=== PATIENT | female | born 1960 | race Caucasian/White ===

== ENCOUNTER 2019-09-17 12:53 | Observation (INO) | payer OTHER, SELFPAY ==
--- NOTE | 2019-09-17 17:03 | CT ---
CT ABDOMEN AND PELVIS WITHOUT CONTRAST: History: 59-year-old female with ureteral stone, left sided abdominal pain. FINDINGS: The 6-7 mm calculus in the left ureter has moved inferiorly to the L3 level on the 09-11-2019 exam to the L4-5 level on the current exam. There is continued left sided hydroureteronephrosis with periuret eral inflammatory changes. 6 mm calculus in the left kidney is again seen. No calculi are seen in the right kidney, right ureter, or urinary bladder. No right sided hydroureter onephrosis is seen. The remainder of the exam is stable. IMPRESSION: Left sided obstructive uropathy due to a 6-7 mm calculus at L4-5 level. This has moved inferiorly sin ce 09-11-2019. POS: OFF
[2019-09-17] MEDS ORDERED: Ketorolac Tromethamine 30 MG/ML VIAL ONE (17:11)
[2019-09-17 18:10] LABS: Bilirubin Negative (Negative); Blood, Urine Moderate (Negative); Glucose, Urine (Dipstick) 100 mg/dL (Negative); Ketone, Urine 40 mg/dL (Negative); Leukocyte Negative (Negative); Nitrite Negative (Negative); Protein, Urine (Dipstick) 30 mg/dL (Neg-Trace)
[2019-09-17 18:11] LABS: #Basophils 0.1 thou/uL (0.0-0.2); #Lymphocytes 1.5 thou/uL (1.20-3.40); #Monocytes 0.9 thou/uL (0.11-0.59); #Neutrophils 10.1 thou/uL (1.40-6.50); %Basophils 0.9 % (0.0-1.0); %Eosinophils 0.4 % (0.0-10.0); %Lymphocytes 11.6 % (21.0-51.0); %Monocytes 6.9 % (0.0-10.0); %Neutrophils 80.2 % (42.0-75.0); Hemoglobin 14.6 g/dL (12.0-16.0); Mean Corpuscular HGB CONC 33.6 g/dL (32.0-36.0); Mean Corpuscular Volume 86.2 fL (78.0-98.0); Mean Platelet Volume 7.3 fL (7.4-10.4); Platelet Count 252 thou/uL (130-400); RBC Distribution Width 11.6 % (11.5-14.5); Red Blood Cell (RBC) Count 5.05 mill/uL (4.20-5.40); White Blood Cell (WBC) Count 12.6 thou/uL (4.8-10.8)
[2019-09-17 18:13] LABS: Clarity Hazy (Clear)
[2019-09-17 18:22] LABS: Bacteria/HPF 1+ HPF (None Seen); RBC/HPF 0-3 HPF (0-3)
[2019-09-17 18:38] LABS: Chloride 103 mmol/L (98-107); Potassium 4.7 mmol/L (3.5-5.1); Sodium 133 mmol/L (136-145)
[2019-09-17 18:39] LABS: Calcium 9.6 mg/dL (7.8-10.44)
[2019-09-17 18:49] LABS: Albumin 3.7 g/dL (3.5-5.0)
[2019-09-17 18:52] LABS: Globulin 4.8 g/dL (2.4-3.5); Glucose 191 mg/dL (70-105); Protein, Total 8.5 g/dL (6.0-8.3)
[2019-09-17 18:53] LABS: Anion Gap 18 mmol/L (10-20); Carbon Dioxide 17 mmol/L (22-29)
[2019-09-17 18:54] LABS: Bilirubin, Total 0.8 mg/dL (0.2-1.2)
[2019-09-17 18:55] LABS: Alkaline Phosphatase 123 U/L (40-110); Calc. Creatinine Clearance 0 mL/min (70-130); Estimated GFR-MDRD 47
[2019-09-17 18:56] LABS: BUN (Urea Nitrogen) 16 mg/dL (9.8-20.1)
[2019-09-17 18:57] LABS: AST (SGOT) 32 U/L (5-34)
[2019-09-17 18:58] LABS: ALT (SGPT) 27 U/L (8-55)
[2019-09-17] MEDS ORDERED: Ondansetron PF 4 MG/2 ML Vial IVP PRN (23:02)
[2019-09-17] MEDS ORDERED: Ondansetron ODT 4 MG TAB SL PRN (23:02)
[2019-09-17] MEDS ORDERED: Morphine 4 MG/ML VIAL SLOW IVP PRN (23:03)
[2019-09-17 23:52] VITALS: BMI 39.7
[2019-09-17] MEDS: Sodium Chloride 0.9% 1,000 ML IV SCH (23:59)
[2019-09-18 07:28] VITALS: BP 160/98; TEMP 98.2
[2019-09-18] MEDS: Sodium Chloride 0.9% 1,000 ML IV SCH (10:32)
[2019-09-18] MEDS ORDERED: Dexamethasone 20 MG/5 ML VIAL ONE (10:33)
[2019-09-18] MEDS ORDERED: PROPOFOL 200 MG/20 ML VIAL ONE (10:33)
[2019-09-18] MEDS ORDERED: Ondansetron PF 4 MG/2 ML Vial ONE (10:33)
[2019-09-18] MEDS ORDERED: Lidocaine 1% PF 5 ML VIAL ONE (10:33)
[2019-09-18] MEDS ORDERED: Ketorolac Tromethamine 30 MG/ML VIAL ONE (10:33)
[2019-09-18 12:22] LABS: SARS-CoV-2 MS2 Positive; SARS-CoV-2 N Gene Negative; SARS-CoV-2 S Gene Negative; SARS-CoV-2 by NAA Not Detected (NotDetected); SARS-CoV-2 orf1ab Negative
[2019-09-18] MEDS ORDERED: Promethazine HCl 25 MG/ML VIAL IM PRN (14:40)
[2019-09-18] MEDS ORDERED: Meperidine HCl/PF 25 MG/ML VIAL SLOW IVP PRN (14:40)
[2019-09-18] MEDS ORDERED: Ondansetron HCl/PF 4 MG/2 ML Vial IVP PRN (14:40)
[2019-09-18] MEDS ORDERED: Promethazine HCl 25 MG/ML VIAL SLOW IVP PRN (14:40)
[2019-09-18] MEDS ORDERED: Levofloxacin 500 mg/D5W 100 ml Premix Bag ONE (15:23)
[2019-09-18] MEDS ORDERED: Fentanyl 100 MCG/2 ML VIAL ONE (15:33)
[2019-09-18] MEDS ORDERED: Oxybutynin 5 MG TAB PO PRN (15:48)
[2019-09-18] MEDS ORDERED: traMADol HCl 50 MG TAB PO PRN (15:48)
[2019-09-18] MEDS ORDERED: Phenazopyridine HCl 97.5 MG TABLET PO PRN (15:48)
[2019-09-18] MEDS ORDERED: Acetaminophen 325 MG TAB PO PRN (15:49)
[2019-09-18] MEDS ORDERED: Morphine 2 MG/ML VIAL SLOW IVP PRN (15:49)
--- NOTE | 2019-09-18 23:01 | HP ---
ADMITTING PHYSICIAN: Marv Curry MD REASON FOR ADMISSION: Ureteral stone with intractable pain. CHIEF COMPLAINT: "I have a kidney stone and it hurts so bad." HISTORY OF PRESENT ILLNESS: Ms. Us is a 59-year-old white female who presented to the emergency room approximately a week ago with a severe episode of left flank pain which was 10/10, associated with nausea without vomiting. She did not have any fevers. She underwent a CT stone protocol, which demonstrated a left ureteral stone. She was discharged with instructions to take ibuprofen 800 mg three times a day as well as taking Flomax. She went home and the pain subsided after approximately 1 or 2 days and she thought she had passed the stone. Unfortunately, approximately 1 week later as of yesterday, the pain reoccurred, 10/10 on the left side with severe intractable pain. She went back to the ER where she had another scan which showed distal migration of the stone. However, it was the same stone with hydronephrosis associated. As such, I was called and given that this was her second admission to the emergency room, I recommended that she be brought in. On my discussion with the patient, she states she has no prior history of stones, although she has a sister who used to get kidney stones. She has not had any fevers and currently is feeling better with no nausea or vomiting. She has not yet passed the stone. She reports no baseline urinary difficulties or problems. She denies any gross hematuria. She does not have problems with recurrent urinary tract infections. She denies any previous urologic surgeries. ALLERGIES: NONE. CURRENT MEDICATIONS: 1. Fish oil one tab p.o. daily. 2. Aspirin 81 mg p.o. daily. 3. Flomax 0.4 mg p.o. daily. 4. Ibuprofen 800 mg p.o. t.i.d. p.r.n. ureteral stone pain. PAST MEDICAL HISTORY: 1. Prediabetes, although this may have progressed to full diabetes, the patient has not kept appointments with her primary care doctor. 2. Coronary artery disease. 3. Previous history of snake bites. 4. History of myocardial infarction x2. PAST SURGICAL HISTORY: 1. A 4-vessel CABG. 2. Right elbow surgery. 3. Laparoscopic uterine surgery unspecified exactly what was done. FAMILY HISTORY: Significant for a sister with kidney stones. SOCIAL HISTORY: The patient has no history of ethanol abuse, tobacco abuse or illicit drug use. REVIEW OF SYSTEMS: A 12-point review of systems were reviewed and negative other than what was commented on the HPI. PHYSICAL EXAMINATION: VITAL SIGNS: Stable. The patient is afebrile. GENERAL: No apparent distress. Communicative, alert, well nourished, well developed, answering questions appropriately. Moderately obese. HEENT: Normocephalic, atraumatic. Pupils are symmetric and round. Mouth was not examined secondary to COVID-19 and the patient is wearing a mask. NECK: Trachea midline. CARDIOVASCULAR: Regular rate and rhythm. Normal S1, S2. Symmetric pulses. CHEST: Nonlabored breathing. Symmetric expansion. LUNGS: Clear anteriorly. Well-healed median sternotomy scar. ABDOMEN: Soft, nontender, and nondistended. Positive bowel sounds. No obvious organomegaly, although exam is somewhat limited secondary to abdomen size. No CVA tenderness. : Deferred at this time. EXTREMITIES: No clubbing, cyanosis, or edema. SKIN: Warm, dry. No rashes or lesions. Good turgor. LYMPH: No obvious lymphadenopathy in the supraclavicular or axillary regions. NEUROLOGIC: Cranial nerves II through XII grossly intact. No obvious sensory or motor deficits identified. MUSCULOSKELETAL: No joint deformity or joint erythema noted. Full range of motion. PSYCHIATRIC: Alert and oriented x3. Appropriate mood and affect. LABORATORY DATA: On laboratory evaluation, full set of labs are in the [facility] system which I have reviewed. The patient does have bacteria in the urine, but there are numerous squamous cells, indicating a likely contaminated specimen. Serum white count and creatinine are within normal limits. ASSESSMENT: A 59-year-old white female with a left ureteral stone which has resulted in the patient ending up in the emergency room 2 times. At this point, I do not recommend medical expulsive therapy any further. I told her that the best course of action would be procedural based intervention since I do not have a negative urine culture with bacteria in the urine, although it is likely contaminated, I told her that the safest option would not be to proceed with ureteroscopy at this point, but just go for ureteral stent. We can then obtain a urine culture later and ensure that it is negative after which time we can then plan for ureteroscopy next week. I went over the cystoscopy and ureteral stenting. The procedure is relatively short and carries a low risk, but risks do include inability to pass the stent, bleeding, damage to the ureter, infection, damage to the kidney or bladder, and need for further procedures. She does understand the risks of the procedure and wishes to proceed forward. I also discussed with her the need to keep followup appointments as if we put a stent in and she does not follow up, this could have serious and morbid repercussions including sepsis, , loss of the kidney and severe stone formation on an encrusted stent which is retained. She states she will keep followup appointments to make sure that she comes back for future surgeries to get her stone removed and ultimately her stent removed. PLAN: 1. N.p.o. until after procedure. 2. To OR for cystoscopy and left ureteral stent placement. 3. SCDs to OR. 4. Levofloxacin 500 mg IV, on-call to the OR. 5. The patient can be discharged after procedure. We will plan for future followup as an outpatient surgery to remove her stone. Job ID: [id number]
--- NOTE | 2019-09-18 23:32 | OP ---
DATE OF PROCEDURE: 09/18/2019 SERVICE: Urology. PREOPERATIVE DIAGNOSIS: Left ureteral stone. POSTOPERATIVE DIAGNOSIS: Left ureteral stone. PROCEDURE PERFORMED: Cystoscopy and left ureteral stent, 6 x 24 double-J stent. INDICATION FOR PROCEDURE: Mrs. Us is a 59-year-old white female with a left ureteral stone which has resulted in her going to the emergency room twice. The stone measures approximately 6 mm in the proximal to mid ureter. Due to the lower likelihood that this stone will pass spontaneously, I recommended ureteroscopy as the best method of management. However, she has no negative urine culture and did have bacteria in her urine. Therefore, I recommended a cystoscopy and stent currently with ureteroscopy deferred to a later date. Risks and benefits have been discussed and she has agreed to proceed forward. DESCRIPTION OF PROCEDURE: After identification of armband and verification of consent, the patient was brought back to the operating room, where she underwent general anesthesia with an LMA. She was then placed in dorsal lithotomy position and prepped and draped in usual sterile fashion. After appropriate time-out, a lubricated 21-Tongan rigid cystoscope was introduced per urethra into the bladder. Attention was turned to left ureteral orifice which was cannulated with a 0.035 Sensor wire up to the level of renal pelvis. The stone was fluoroscopically visible. The Sensor wire was navigated past the stone into the renal pelvis. A 6 x 24 double-J stent was then advanced over the Sensor wire up to the level of renal pelvis. The wire was then removed leaving a good curl in the bladder and a partial curl in the kidney. The bladder was then emptied and cystoscope removed. The patient was then awakened and taken to PACU for recovery in stable condition. COMPLICATIONS: None. ESTIMATED BLOOD LOSS: Minimal. RETAINED TUBE AND DRAINS: 6 x 24 double-J stent on the left. SPECIMENS: None. DISPOSITION: Patient will be discharged home. She will follow up with me in approximately 1 week for definitive ureteroscopy. Job ID: [id number]
--- NOTE | 2019-09-19 15:55 | DIS ---
DATE OF ADMISSION: 09/17/2019 DATE OF DISCHARGE: 09/18/2019 ADMITTING DIAGNOSIS: Left ureteral stone. DISCHARGE DIAGNOSIS: Left ureteral stone. PROCEDURE PERFORMED: Left ureteral stent placement. BRIEF HISTORY: Mrs. Us is a 59-year-old white female, who presented to the ER for the second time for a 6-mm proximal left ureteral stone. Given that she has uncontrolled pain and has now been to the ER twice, I recommended that she come in to the hospital for pain control and ureteral stent placement. The full H and P can be found in the dictated portion of [facility]. HOSPITAL COURSE: The patient underwent pain control with IV analgesia, IV fluids, and antiemetics. On hospital day 2, the patient was taken to the OR, where she had ureteral stent placed on the left. Postoperatively, she was discharged home. DISPOSITION: Discharged to home. DISCHARGE CONDITION: Good. DISCHARGE MEDICATIONS: Include resuming all of her home medications. In addition, she was given tramadol 50 mg p.o. q.6 hours p.r.n. pain, oxybutynin 5 mg p.o. t.i.d. p.r.n. bladder spasms, and Pyridium 200 mg p.o. t.i.d. p.r.n. dysuria. DISCHARGE INSTRUCTIONS: She was instructed to perform light activities with the stent in to avoid excessive pain. She was also instructed extensively about the risks of an indwelling stent and need for followup appointment. We will plan for definitive ureteroscopy the following week. Job ID: [id number]
== END 2019-09-18 19:17 | disposition home or self-care (01) ==
LOC: ERS 12:53 → T4-B 20:56
PROVIDERS: ADMIT Urology; ATTEND Urology
PROC: 0T778DZ Dilation of Left Ureter with Intraluminal Device, Via Natural or Artificial Opening Endoscopic (ICD-10-PCS; principal; 2019-09-18)
DX: N13.2 Hydronephrosis with renal and ureteral calculous obstruction (principal); R73.03 Prediabetes; I25.10 Atherosclerotic heart disease of native coronary artery without angina pectoris; I25.2 Old myocardial infarction; Z79.82 Long term (current) use of aspirin; Z79.899 Other long term (current) drug therapy; Z95.1 Presence of aortocoronary bypass graft; Z20.828 Contact with and (suspected) exposure to other viral communicable diseases
CPT/HCPCS: 36415; 51798; 74176; 74420; 76000; 80053; 81003; 81015; 85025; 87086; 87635; 96372; 96374; G0378; J1100; J1885; J1956; J2270; J2405; J2704; J3010; U0003

== ENCOUNTER 2019-09-25 07:41 | Outpatient (CLI) | payer OTHER ==
[2019-09-25 16:47] LABS: Bilirubin Negative (Negative); Blood, Urine 3+ (Negative); Clarity Clear (Clear); Glucose, Urine (Dipstick) Greater than 1000 mg/dL (Negative); Ketone, Urine Negative (Negative); Leukocyte 250 Leu/uL (Negative); Nitrite Negative (Negative); Protein, Urine (Dipstick) 30 mg/dL (Neg-Trace); RBC/HPF Greater than 50 HPF (0-3); Specific Gravity, Urine 1.035 (1.002-1.036); Squamous Epithelial 0-3 HPF (0-3); Urobilinogen Normal mg/dL (Less than 2); WBC/HPF 21-50 HPF (0-3)
[2019-09-25 16:51] LABS: Bacteria/HPF 1+ HPF (None Seen)
[2019-09-26 13:14] LABS: SARS-CoV-2 MS2 Positive; SARS-CoV-2 N Gene Negative; SARS-CoV-2 S Gene Negative; SARS-CoV-2 by NAA Not Detected (NotDetected); SARS-CoV-2 orf1ab Negative
== END 2019-09-25 07:42 | disposition home or self-care (01) ==
LOC: LABBT 07:41
PROVIDERS: ATTEND Urology
DX: Z01.812 Encounter for preprocedural laboratory examination (principal); Z11.59 Encounter for screening for other viral diseases; N20.1 Calculus of ureter
CPT/HCPCS: 81001; 87086; 87635; U0003

== ENCOUNTER 2019-09-25 13:28 | Outpatient (CLI) | payer OTHER ==
--- NOTE | 2019-09-25 14:04 | CT ---
CT Stone Protocol 09/25/2019 12:00 AM HISTORY: Calculus of kidney. Patient plans of left renal stone diagnosed 2 weeks ago. COMPARISON: 09/17/2019. Technique: Multiple contiguous axial CT images are obtained through the abdomen and pelvis without IV contrast. Coronal reformats are provided. FINDINGS: This examination is limited for the evaluation of solid organs and vascular structures due to the lac k of intravenous contrast. Lower Chest: There is minimal atelectasis present at each lung base. Abdomen: Liver: Diminished attenuation again reflective of hepatic steatosis. Gallbladder: Small amount of increased density layering within the gallbladder lumen which may repres ent small amount of gallbladder sludge. No obvious calculus is seen based on CT evaluation. Pancreas: Grossly normal nonenhanced CT appearance. Spleen: Grossly normal nonenhanced CT appearance. Adrenals: Grossly normal nonenhanced CT appearance. Kidneys and ureters: No right renal calculus or hydronephrosis is present. There has been interval pl acement of a left ureteral stent. Previously described calculus in the proximal left ureter is again seen adjacent to the ureteral stent at the L5-S1 level. Nonobstructing inferior pole left renal calculus is again present. The left hydronephrosis and hydroureter has improved. Pelvis: Urinary bladder: Incompletely distended. Ureteral stent is present in the urinary bladder. Reproductive Organs: No pelvic masses. Lymph Nodes: No enlarged lymph nodes. Bowel: Normal caliber. Appendix: The appendix is normal in caliber. Peritoneum: No free fluid, free air, or fluid collection. Retroperitoneum: within normal limits. Vessels: Vascular calcifications are seen in the abdominal aorta and iliac arteries.. Abdominal Wall: Surgical clip is seen anteriorly central lower pelvis. Bones: Degenerative changes are again present in the spine. IMPRESSION: 1. Interval placement of a left ureteral stent with previously seen calculus in the left ureter at th e L5-S1 level again present. Improvement in hydronephrosis and hydroureter is noted on the left. 2. Nonobstructing left renal calculus. 3. No right renal or ureteral calculus. 4. Hepatic steatosis. 5. Findings likely related to sludge within the gallbladder lumen.
== END 2019-09-25 13:29 | disposition home or self-care (01) ==
LOC: SCSCT 13:28
PROVIDERS: ATTEND Urology
DX: N13.2 Hydronephrosis with renal and ureteral calculous obstruction (principal); K76.0 Fatty (change of) liver, not elsewhere classified; Z96.0 Presence of urogenital implants
CPT/HCPCS: 74176

== ENCOUNTER 2019-11-26 13:54 | Outpatient (CLI) | payer OTHER ==
--- NOTE | 2019-11-26 15:14 | ULT ---
BILATERAL RENAL ULTRASOUND COMPLETE: HISTORY: Renal calculus. COMPARISON: Noncontrast abdomen and pelvic CT scan, 09/25/2019. FINDINGS: The right kidney measures 12.3 x 6.4 x 5.6 cm. The left kidney measures 11.4 x 5.4 x 5.0 cm. The urinary bladder appears unremarkable. No evidence for renal hydronephrosis. No overt shadowing calculus demonstrated. IMPRESSION: Unremarkable bilateral renal ultrasound. POS: RRE
== END 2019-11-26 13:55 | disposition home or self-care (01) ==
LOC: BICULT 13:54
PROVIDERS: ATTEND Urology
DX: N20.0 Calculus of kidney (principal)
CPT/HCPCS: 76770

== ENCOUNTER 2023-03-02 11:32 | Inpatient (IN) | payer OTHER ==
[2023-03-02 12:03] LABS: Bilirubin Negative (Negative); Blood, Urine Trace (Negative); Clarity Clear (Clear); Glucose, Urine (Dipstick) >=1000 mg/dL (Negative); Ketone, Urine Negative (Negative); Leukocyte Negative (Negative); Nitrite Negative (Negative); Protein, Urine (Dipstick) Negative (Neg-Trace); Urobilinogen 0.2 mg/dL (Less than 2); pH, Urine 5.5 (5.0-9.0)
[2023-03-02 12:09] LABS: Bacteria/HPF 1+ HPF (None Seen); CAUTI Indications for Culture Dysuria,urgency,freq; WBC/HPF 0-3 HPF (0-3)
[2023-03-02 12:10] LABS: Urine Culture Reflex No No
[2023-03-02] MEDS ORDERED: Ondansetron PF 4 MG/2 ML Vial ONE ×2 (12:35→17:15)
[2023-03-02] MEDS ORDERED: Ketorolac Tromethamine 30 MG (1 mL) VIAL ONE (12:36)
[2023-03-02 12:50] LABS: #Basophils 0.1 thou/uL (0.0-0.2); #Monocytes 0.5 thou/uL (0.11-0.59); %Basophils 0.4 % (0.0-1.0); %Eosinophils 0.1 % (0.0-10.0); %Lymphocytes 10.1 % (21.0-51.0); %Monocytes 3.5 % (0.0-10.0); %Neutrophils 85.5 % (42.0-75.0); Hematocrit 45.9 % (36.0-47.0); Hemoglobin 15.1 g/dL (12.0-16.0); Mean Corpuscular HGB CONC 32.9 g/dL (32.0-36.0); Mean Corpuscular Hemoglobin 27.5 pg (27.0-31.0); Mean Corpuscular Volume 83.6 fl (78.0-98.0); Mean Platelet Volume 9.5 fL (7.4-10.4); Platelet Count 343 10x3/uL (130-400); RBC Distribution Width 12.2 % (11.5-14.5); Red Blood Cell (RBC) Count 5.49 mill/uL (4.20-5.40)
[2023-03-02 13:21] LABS: ALT (SGPT) 21 U/L (8-55); AST (SGOT) 19 U/L (5-34); Albumin 3.9 g/dL (3.4-4.8); Alkaline Phosphatase 146 U/L (40-110); Anion Gap 19 mmol/L (10-20); BUN (Urea Nitrogen) 11 mg/dL (9.8-20.1); Bilirubin, Total 0.8 mg/dL (0.2-1.2); Calc. Creatinine Clearance 0 mL/min (70-130); Calcium 9.7 mg/dL (7.8-10.44); Carbon Dioxide 20 mmol/L (23-31); Chloride 103 mmol/L (98-107); Estimated GFR 77; Globulin 4.5 g/dL (2.4-3.5); Glucose 215 mg/dL (80-115); Lipase 17 U/L (8-78); Potassium 4.1 mmol/L (3.5-5.1); Protein, Total 8.4 g/dL (5.8-8.1); Sodium 138 mmol/L (136-145)
[2023-03-02] MEDS ORDERED: Calcium Carbonate 500 MG ChewTAB PO PRN (15:08)
[2023-03-02] MEDS ORDERED: Ondansetron ODT 4 MG TAB PO PRN (15:08)
[2023-03-02] MEDS ORDERED: Heparin 10,000 UNITS/ 10 ML VIAL SLOW IVP SCH ×2 (15:15→16:30)
[2023-03-02 15:21] LABS: Prothrombin Time 13.8 sec (12.0-14.7)
[2023-03-02 15:22] LABS: PTT 22.5 sec (22.9-36.1)
[2023-03-02 15:34] LABS: Hematocrit 44.3 % (36.0-47.0); Hemoglobin 14.4 g/dL (12.0-16.0); Platelet Count 302 10x3/uL (130-400)
[2023-03-02] MEDS ORDERED: Heparin 5,000 UNITS/ML VIAL ONE ×2 (15:38→16:04)
[2023-03-02] MEDS ORDERED: Heparin 25,000 units/D5W 500 ML ONE (15:38)
[2023-03-02 15:53] LABS: Hemoglobin A1c 7.5 % (4.0-6.0)
[2023-03-02] MEDS ORDERED: Ondansetron ODT 4 MG TAB ONE ×2 (17:21→17:31)
[2023-03-02] MEDS ORDERED: Morphine 2 MG/ML VIAL SLOW IVP SCH (17:30)
[2023-03-02] MEDS ORDERED: Ondansetron PF 4 MG/2 ML Vial IVP PRN (18:54)
[2023-03-02] MEDS ORDERED: Ondansetron PF 4 MG/2 ML Vial IVP SCH (19:00)
[2023-03-02] MEDS: Famotidine 20 MG TAB PO SCH (19:26)
[2023-03-02 19:58] VITALS: BMI 30.8
[2023-03-02] MEDS ORDERED: Morphine 4 MG/ML VIAL SLOW IVP SCH (22:00)
[2023-03-03 04:45] LABS: #Monocytes 0.9 thou/uL (0.11-0.59); %Basophils 0.3 % (0.0-1.0); %Lymphocytes 11.3 % (21.0-51.0); %Monocytes 6.6 % (0.0-10.0); %Neutrophils 81.4 % (42.0-75.0); Hematocrit 46.7 % (36.0-47.0); Hemoglobin 14.9 g/dL (12.0-16.0); Mean Corpuscular HGB CONC 31.9 g/dL (32.0-36.0); Mean Corpuscular Hemoglobin 27.4 pg (27.0-31.0); Mean Corpuscular Volume 85.8 fl (78.0-98.0); Mean Platelet Volume 9.4 fL (7.4-10.4); Platelet Count 324 10x3/uL (130-400); RBC Distribution Width 12.4 % (11.5-14.5); Red Blood Cell (RBC) Count 5.44 mill/uL (4.20-5.40); White Blood Cell (WBC) Count 13.6 10x3/uL (4.8-10.8)
[2023-03-03] MEDS ORDERED: Morphine 2 MG/ML VIAL SLOW IVP PRN (04:55)
[2023-03-03 05:12] LABS: Anion Gap 14 mmol/L (10-20); BUN (Urea Nitrogen) 12 mg/dL (9.8-20.1); Calc. Creatinine Clearance 98 mL/min (70-130); Calcium 9.3 mg/dL (7.8-10.44); Carbon Dioxide 23 mmol/L (23-31); Chloride 106 mmol/L (98-107); Estimated GFR 76; Glucose 197 mg/dL (80-115); Potassium 4.6 mmol/L (3.5-5.1); Sodium 138 mmol/L (136-145)
[2023-03-03] MEDS: Acetaminophen 325 MG TAB PO PRN ×2 (08:30→18:34)
[2023-03-03] MEDS: Famotidine 20 MG TAB PO SCH ×2 (08:31→19:17)
[2023-03-03] MEDS ORDERED: Insulin Regular 300 UNITS/3 ML VIAL SC PRN (09:22)
[2023-03-03] MEDS ORDERED: Glucagon 1 MG/ML KIT IM PRN (09:22)
[2023-03-03] MEDS ORDERED: Dextrose 5% in Water 1,000 ML IV PRN (09:22)
[2023-03-03] MEDS ORDERED: Dextrose 50% Abboject 50 ML SYRINGE SLOW IVP PRN (09:22)
[2023-03-03] MEDS: Heparin 25,000 units/D5W 500 ML IVPB SCH (10:17)
[2023-03-03] MEDS: Sodium Chloride 0.9% 1,000 ML IV SCH ×2 (11:14→22:12)
[2023-03-04] MEDS: Famotidine 20 MG TAB PO SCH ×2 (09:18→19:53)
[2023-03-04] MEDS ORDERED: Iopamidol-370 76% 500 ML MDV (1 ML CHARGE) ONE (12:31)
[2023-03-04 15:12] LABS: Hematocrit 41.3 % (36.0-47.0); Hemoglobin 13.4 g/dL (12.0-16.0); Platelet Count 246 10x3/uL (130-400)
[2023-03-04] MEDS: Heparin 25,000 units/D5W 500 ML IVPB SCH (21:17)
[2023-03-05 08:41] LABS: #Basophils 0.1 thou/uL (0.0-0.2); #Eosinphils 0.4 thou/uL (0.0-0.7); #Monocytes 0.6 thou/uL (0.11-0.59); #Neutrophils 4.7 thou/uL (1.40-6.50); %Basophils 0.6 % (0.0-1.0); %Eosinophils 5.3 % (0.0-10.0); %Lymphocytes 27.3 % (21.0-51.0); %Monocytes 7.5 % (0.0-10.0); %Neutrophils 58.7 % (42.0-75.0); Hematocrit 40.2 % (36.0-47.0); Mean Corpuscular HGB CONC 32.3 g/dL (32.0-36.0); Mean Corpuscular Volume 86.6 fl (78.0-98.0); Mean Platelet Volume 10.1 fL (7.4-10.4); Platelet Count 261 10x3/uL (130-400); RBC Distribution Width 12.4 % (11.5-14.5); Red Blood Cell (RBC) Count 4.64 mill/uL (4.20-5.40)
[2023-03-05] MEDS: Famotidine 20 MG TAB PO SCH ×2 (09:04→20:23)
[2023-03-05 10:26] LABS: Anion Gap 16 mmol/L (10-20); BUN (Urea Nitrogen) 12 mg/dL (9.8-20.1); Calc. Creatinine Clearance 123 mL/min (70-130); Calcium 8.8 mg/dL (7.8-10.44); Carbon Dioxide 19 mmol/L (23-31); Chloride 105 mmol/L (98-107); Estimated GFR 98; Glucose 123 mg/dL (80-115); Potassium 3.3 mmol/L (3.5-5.1); Sodium 137 mmol/L (136-145)
[2023-03-05] MEDS: Heparin 25,000 units/D5W 500 ML IVPB SCH (12:44)
[2023-03-06] MEDS: Heparin 25,000 units/D5W 500 ML IVPB SCH (04:24)
[2023-03-06 08:55] LABS: INR-International Normal Ratio 1.1; Prothrombin Time 14.1 sec (12.0-14.7)
[2023-03-06 08:56] LABS: PTT 68.9 sec (22.9-36.1)
[2023-03-06] MEDS: Famotidine 20 MG TAB PO SCH ×2 (09:07→20:48)
[2023-03-06 15:38] LABS: Hematocrit 38.7 % (36.0-47.0); Hemoglobin 12.8 g/dL (12.0-16.0); Platelet Count 281 10x3/uL (130-400)
[2023-03-06] MEDS: Apixaban 5 MG TAB PO SCH (20:48)
[2023-03-07] MEDS: Apixaban 5 MG TAB PO SCH (08:55)
[2023-03-07] MEDS: Famotidine 20 MG TAB PO SCH (08:56)
[2023-03-07 09:10] VITALS: BP 128/81; TEMP 98.1
== END 2023-03-07 10:00 | disposition home or self-care (01) | DRG 395 ==
LOC: ERS 11:32 → ERHOLD 15:02 → T4-A 17:50
PROVIDERS: ADMIT Student in an Organized Health Care Education/Training Program; ATTEND Hospitalist
DX: K55.019 Acute (reversible) ischemia of small intestine, extent unspecified (principal); K55.9 Vascular disorder of intestine, unspecified; I25.10 Atherosclerotic heart disease of native coronary artery without angina pectoris; E78.5 Hyperlipidemia, unspecified; I99.8 Other disorder of circulatory system; E11.9 Type 2 diabetes mellitus without complications; Z79.82 Long term (current) use of aspirin; Z79.899 Other long term (current) drug therapy; I25.2 Old myocardial infarction; Z95.1 Presence of aortocoronary bypass graft
CPT/HCPCS: 36415; 36416; 74177; 80048; 80053; 81001; 83036; 83605; 83690; 85014; 85018; 85025; 85049; 85610; 85730; 96361; 96365; 96375; J1644; J1815; J1885; J2270; J2272; J2405; J7050; Q0162; Q9967

== ENCOUNTER 2024-11-21 13:07 | Outpatient (CLI) | payer OTHER | END 2024-11-21 13:08 | disposition home or self-care (01) | LOC: BICMAMMO 13:07 | PROVIDERS: ATTEND Physician Assistant | DX: Z12.31 Encounter for screening mammogram for malignant neoplasm of breast (principal) | CPT/HCPCS: 77063; 77067 ==